=== PATIENT | male | born 1995 | race Caucasian/White ===

== ENCOUNTER → 2020-10-27 | Outpatient (CLI) | payer OTHER, BC ==
[~2020-10-27] MED LIST: AMOX250CH PO; DIPH12.5EL PO; PRED20 PO; RXONDA4ODT MM
== END | disposition home or self-care (01) ==
LOC: LAB SHORT 16:45 → LAB 16:45
DX: J02.9 Acute pharyngitis, unspecified (principal)
CPT/HCPCS: 87081

== ENCOUNTER 2021-04-18 13:13 | Inpatient (IN) | payer OTHER, BC ==
[~2021-04-18] VITALS: Ht 180.3 cm; Wt 68.4 kg
[2021-04-18 19:18] LABS: SARS-Cov-2 (COVID-19) PCR, MMC NEGATIVE (NEGATIVE)
--- NOTE | 2021-04-19 04:30 | NUR ---
SHIFT SUMMARY PT ADMITTED FOR L CALCANEAL FX W/ ACHILLES TENDON INJURY, ANTICIPATING A OR PROCEDURE TODAY FOR I&D CALCANEUS POSS ORIF WITH DR. VEGAS. PT AOX4. PT REPORTS PAIN ON L HEEL 6-9/10 PAIN LEVEL. PAIN MANAGED WITH DILAUDID 1MG, MEDICATED TWICE T/O SHIFT. PT DENIES N/T ON LLE. PEDAL PULSE IS STRONG. ABLE TO MOVE ALL EXTREMITIES. CAP REFILL WNL. AMBULATES IN THE BATHROOM WITH WALKER, SBA. VOIDING WITHOUT DIFFICULTY. VSS. TOLERATING PO INTAKE LAST NIGHT DENIES N/V. NPO AFTER MIDNIGHT. LLE ELEVATED AND L HEEL/ANKLE WITH PRESSURE DRESSING FROM ED. COLD THERAPY/ICE IN PLACED. IV FLUIDS INFUSING. CALL LIGHT WITHIN REACH. WILL PROVIDE REPORT TO ONCOMING NURSE.
--- NOTE | 2021-04-19 08:52 | NUR ---
PT TO OR.
--- NOTE | 2021-04-19 10:25 | NUR ---
04/19/21 1025 Paras Rai PATIENT ON SCHEDULED ANTIBIOTICS
--- NOTE | 2021-04-19 11:54 | NUR ---
PT ARRIVED TO ROOM FROM PACU. TRANSFERRED SELF TO BED FROM [facility] W/MINIMAL ASSIST. AMBULATED TO RESTROOM,NWB, WITH FWW AND VOIDED. VSS. DENIES PAIN AT THIS TIME. CALL LIGHT IN REACH.
--- NOTE | 2021-04-19 14:29 | NUR ---
therapy worked w/pt
--- NOTE | 2021-04-19 15:56 | NUR ---
occupational therapy in to see pt.
--- NOTE | 2021-04-19 17:09 | NUR ---
SUMMARY NO ACUTE CHANGES SINCE ARRIVING BACK TO UNIT FROM PACU. PT IS SBA W/FWW. WORKED W/AND CLEARED PHYSICAL THERAPY. TOLERATING PO AND VOIDING. PAIN CONTROLLED PER EMAR. ICE PACK TO SURGICAL SITE AT THIS TIME. CALL LIGHT IN REACH.
--- NOTE | 2021-04-19 18:52 | NUR ---
REPORT GIVEN TO ONCOMING SHIFT.
--- NOTE | 2021-04-20 04:17 | NUR ---
SHIFT SUMMARY PT AOX4. POD1 I&D WITH ORIF ON L CALCANEOUS. PT'S LLE/HEEL WRAP WITH SPLINT AND ROSANNA WRAP, DRESSING IS CDI. PT DENIES NUMBNESS AND TINGINGLING SENSATION. PEDAL PULSES IS STRONG. CAP REFILL WNL. LLE IS ELEVATED AND ICED. PT SLEPT GOOD OVERNIGHT. PT REPORTS MIN-MOD PAIN. PAIN MANAGED WITH TORADOL, TYLENOL AND NORCO. TOLERATING PO INTAKE, DENIES NAUSEA AND VOMITING. AMBULATING IN THE BATHROOM WITH FWW, SBA. LLE IS NWB. SALINE LOCKED. IV ABX ADMINISTERED LAST NIGHT. VSS. VOIDING WITHOUT DIFFICULTY. CALL LIGHT WITHIN REACH. WILL CONTINUE TO MONITOR AND WILL PROVIDE REPORT TO ONCOMING NURSE.
[2021-04-20] MEDS ORDERED: ASPIR 8181 M1 PO (09:28)
[2021-04-20] MEDS ORDERED: HYDR1TAB94 PO (09:29)
[2021-04-20] MEDS ORDERED: SULTRIDS PO (09:29)
--- NOTE | 2021-04-20 09:36 | NUR ---
pt resting in bed with leg elevated on pillows ice pack in place, pt awake on phone, a/ox3, pleasant and cooperative with care, follows commands well, reports pain 6/10 and norco is effective, spoke with him about need to continue stool softeners at home, got up to bathroom using a walker and non weight bearing, he feels he's ready to go home after abx are infused. did medicate him with norco, call light in reach.
--- NOTE | 2021-04-20 10:42 | NUR ---
pt has been discharged to home, went over instructions, he has his hard copy of scripts, instructed on need of bowel care while on pain meds. iv removed intact, left via wheelchair with nurse in attendence, has all personal belongings. here to take him home.
== END 2021-04-20 10:42 | disposition home or self-care (01) | DRG 908 ==
LOC: ER 13:13 → SURS 15:29
PROVIDERS: ADMIT Orthopaedic Surgery
PROC: 0QSM04Z Reposition Left Tarsal with Internal Fixation Device, Open Approach (ICD-10-PCS; principal; 2021-04-19 09:15)
DX: S97.82XA Crushing injury of left foot, initial encounter (principal); S92.002B Unspecified fracture of left calcaneus, initial encounter for open fracture; Z20.822 Contact with and (suspected) exposure to COVID-19; W23.0XXA Caught, crushed, jammed, or pinched between moving objects, initial encounter; Y99.0 Civilian activity done for income or pay
CPT/HCPCS: 73610; 73700; 96365; 96375; 97116; 97162; 99285-25; A9270; J0690; J0696; J1100; J1170; J1885; J2250; J2405; J2704; J2710; J3010; J7030; J7120; U0004

== ENCOUNTER 2021-10-22 09:18 | Emergency (ER) | payer OTHER, BC ==
[~2021-10-22] VITALS: Ht 177.8 cm; Wt 74.8 kg
[~2021-10-22 09:18] MED LIST changes: +ASPIR 8181 M1 PO; +HYDR1TAB94 PO; +SULTRIDS PO
[2021-10-22] MEDS ORDERED: AMOCLA875 PO (11:15)
== END 2021-10-22 11:23 | disposition home or self-care (01) ==
LOC: ER 09:18
DX: S61.210A Laceration without foreign body of right index finger without damage to nail, initial encounter (principal); S61.212A Laceration without foreign body of right middle finger without damage to nail, initial encounter; Z88.1 Allergy status to other antibiotic agents; W22.8XXA Striking against or struck by other objects, initial encounter
CPT/HCPCS: 12002; 73130; 99283-25; A9270